=== PATIENT | female | born 1970 | race Caucasian/White ===

== ENCOUNTER 2023-06-29 09:07 | Outpatient (AMB) | payer OTHER, SELFPAY ==
--- NOTE | 2023-06-29 09:30 | MHC.OFFVIS ---
Intake Vital Signs 06/29/23 09:31 Height 5 ft 4.5 in Weight 278 lb 3.574 oz BMI 47.0 BP 126/82 Blood Pressure Location Rt brachial Position Sitting Pulse 76 Pulse Source Pulse Oximeter Temp 97.4 F Temp Source Skin Pulse Oximetry (%) 95 Intake Visit Reasons: Rheumatoid Arthritis - Confirmed Intake Note: New pt presents today for RA consult. C/o pain everywhere Issuer Required: No Accompanied by: Self / Same As Patient Allergies amoxicillin [From Augmentin] Adverse Reaction (Severe, Verified 06/29/23 09:33) Diarrhea clavulanic acid [From Augmentin] Adverse Reaction (Severe, Verified 06/29/23 09:33) Diarrhea gabapentin Adverse Reaction (Severe, Verified 06/29/23 09:33) Hallucinations hydromorphone [From Dilaudid] Adverse Reaction (Intermediate, Verified 06/29/23 09:33) Headache amitriptyline Adverse Reaction (Unknown, Verified 06/29/23 09:33) Diarrhea butalbital Adverse Reaction (Unknown, Verified 06/29/23 09:33) Vomiting duloxetine Adverse Reaction (Unknown, Verified 06/29/23 09:33) Dizziness pregabalin [From Lyrica] Adverse Reaction (Unknown, Verified 06/29/23 09:33) Dizziness Medication List - Last Reconciled 06/29/23 by Júnior Rivera MD acetaminophen (Tylenol Extra Strength) 1,500 mg PO QAM albuterol sulfate 90 mcg/actuation 1 - 2 puffs inhalation Q4-6H PRN atorvastatin 20 mg PO DAILY betamethasone dipropionate 0.05% topical DAILY dapagliflozin propanediol (Farxiga) 10 mg PO DAILY fluticasone propionate 110 mcg/actuation (Flovent HFA) 1 puff inhalation BID leflunomide 20 mg PO DAILY levocetirizine 10 mg PO DAILY lorazepam 0.5 mg PO BID metoprolol succinate ER 25 mg PO DAILY nystatin (Nystop) topical BID PRN prednisone 10 - 20 mg PO DAILY sacubitril-valsartan 24-26 mg (Entresto) 1 tab PO BID semaglutide (Ozempic) 0.25 mg subcut QWEEK spironolactone 25 mg PO DAILY tofacitinib (Xeljanz) 5 mg PO DAILY tramadol 100 mg PO BEDTIME vitamin B complex 1 tab PO DAILY HPI HPI Comments History of Present Illness Details This is a 53-year-old female with GI a who presents as a new patient. Her previous jet inspector left the practice. Patient stated that she was diagnosed with arthritis since her childhood. She has been on numerous medications but she cannot remember the exact sequence and effectiveness. She was on hydroxychloroquine in the past, also previously on methotrexate, Enbrel. Most recently she was on Orencia and leflunomide added in 2016. Last year patient was found to have a left bundle branch block, her ejection fraction was found to be low, she had a pacemaker placed. Patient states that the Orencia was discontinued 4-5 months ago and she was switched to Xeljanz and she believes that Xeljanz is not helping her symptoms. She has diffuse pain everywhere especially her hands, wrists, elbows, feet. She has to take 10-20 mg of prednisone a day in order to control her arthritis. Patient states that over the last 22 years she has developed multiple skin rashes. She was evaluated by a handbell choir director who told her that she likely has psoriasis. She states that a skin biopsy was done but patient is unsure about the result. [facility] Medical History Anxiety and depression Benign essential hypertension Cardiomyopathy Fibromyalgia Heart failure Hyperlipidemia Left bundle branch block Obstructive sleep apnea Panic disorder without agoraphobia Psoriasis Rheumatoid arthritis Surgical History History of total hysterectomy with bilateral salpingo-oophorectomy (BSO) Hx of gastric bypass Hx of tonsillectomy Hx of tubal ligation S/p total knee replacement, bilateral Family History Mother Hypertension Diabetes Dementia, Onset Age: 69 Father Hx of cardiac pacemaker Maternal Grandmother Pancreatic tumor Maternal Aunt Crohn's disease Malignant tumor of uterus, Onset Age: 58 Maternal Grandfather Dementia, Onset Age: 75 Social History Alcohol intake: current Alcohol intake frequency: does not drink Patient Tobacco Use Status: Former Tobacco user Female Reproductive History Menstrual Total pregnancies: 5 Full term: 1 Ab spontaneous: 4 Review of Systems Const Reports fatigue and Reports weakness ENT Reports dizziness Card Reports dyspnea Resp Reports dyspnea and Reports wheezing Musc Reports arthralgias, Reports joint swelling, Reports limited range of motion, Reports numbness and Reports stiffness Skin/Breast Reports rash and Reports unusual bruising Neuro Reports dizziness, Reports numbness and Reports weakness Psych Reports anxiety Endo Reports fatigue and Reports polydipsia Aller/Immun Reports wheezing Physical Exam Vital Signs: Last Vital Signs Temp 97.4 F 06/29/23 09:31 Pulse 76 06/29/23 09:31 BP 126/82 06/29/23 09:31 Pulse Ox 95 06/29/23 09:31 BMI result Body Mass Index 47.0 Const General: cooperative and healthy appearing Nutritional Appearance: obese morbidly obese Orientation/consciousness: patient oriented x3 Limitations: no limitations HEENT Head: Yes normocephalic and Yes atraumatic Mouth: moist mucous membranes Resp Effort & Inspection: normal respiratory effort and able to speak in complete sentences Auscultation: clear to auscultation bilaterally Skin Other: Erythematous scaly circular skin rashes on both legs Dystrophic nails Neuro General: patient oriented x3 Extrem Other: Right wrist tenderness, limited flexion and pain with any range of motion Right elbow warmth, flexion contracture and pain with full flexion and full extension Left wrist tenderness and pain with any range of motion Left elbow pain with full flexion Normal range of motion of both shoulders Bilateral ankle tenderness Assessment & Plan Assessment & Plan (1) Rheumatoid arthritis: Code(s): M06.9 - Rheumatoid arthritis, unspecified Plan: This is a 53-year-old female previously diagnosed with KATE in her tried told then really able to as rheumatoid arthritis who presents as a new patient. Her previous jet inspector left the practice. Patient has been on numerous DMARDs (records unavailable to me) most recently she was on Orencia subcutaneous injections + leflunomide which seemed to be quite helpful for years, Orencia was discontinued a few months ago and switched to Xeljanz. Patient believes that Xeljanz is not effective. She has multiple tender joints as well as multiple fibromyalgia tender points on exam today. She is currently taking 10-20 mg of prednisone a day in addition to tramadol and oxycodone in order to control her pain. Will request records from patient's previous jet inspector as well as her supervisor shuttle veneering and handbell choir director. Check blood work today and x-rays of involved joints. Plan I spent 46 minutes reviewing patient's chart, evaluating patient, ordering diagnostic workup, counseling patient and documenting in the chart Orders: Orders XR hand wrist LT Today M06.9 - Rheumatoid arthritis, unspecified XR hand wrist RT Today M06.9 - Rheumatoid arthritis, unspecified XR ankle LT min 3V Today M06.9 - Rheumatoid arthritis, unspecified XR ankle RT min 3V Today M06.9 - Rheumatoid arthritis, unspecified XR elbow LT min 3V Today M06.9 - Rheumatoid arthritis, unspecified XR elbow RT min 3V Today M06.9 - Rheumatoid arthritis, unspecified XR foot LT min 3V Today M06.9 - Rheumatoid arthritis, unspecified XR foot RT min 3V Today M06.9 - Rheumatoid arthritis, unspecified Cyclic Citrullinated Peptide Today M06.9 - Rheumatoid arthritis, unspecified Comprehensive Met. Panel Today M06.9 - Rheumatoid arthritis, unspecified C Reactive Protein Today M06.9 - Rheumatoid arthritis, unspecified Rheumatoid Factor Today M06.9 - Rheumatoid arthritis, unspecified Complete Blood Count Auto Diff Today M06.9 - Rheumatoid arthritis, unspecified Immunofixation Pnl, Serum Today M06.9 - Rheumatoid arthritis, unspecified Protein Electrophoresis, Serum Today M06.9 - Rheumatoid arthritis, unspecified Hepatitis A,B,C Profile Today Z11.59 - Encounter for screening for other viral diseases T Spot TB Today Z11.7 - Encounter for testing for latent tuberculosis infection Angiotensin Converting Enzyme Today D86.9 - Sarcoidosis, unspecified Lysozyme, Serum Today D86.9 - Sarcoidosis, unspecified Coding Level of Care Code New Pt Level 4 (30409) Diagnoses Rheumatoid arthritis M06.9
[2023-06-29 09:31] VITALS: BP 126/82; PULSE 76; TEMP 36.3; O2SAT 95; BMI 47.0
== END 2023-06-29 10:29 | disposition home or self-care (01) ==
PROVIDERS: PCP Physician Assistant Medical; Visit Provider Student in an Organized Health Care Education/Training Program
DX: M06.9 Rheumatoid arthritis, unspecified (principal)
CPT/HCPCS: 99204

== ENCOUNTER 2023-06-29 09:07 | Outpatient (REF) | payer OTHER, SELFPAY ==
--- NOTE | ~2023-06-29 | XR_ITS ---
EXAMINATION: XR ELBOW, LEFT CLINICAL INFORMATION: Left elbow COMPARISON: None available. TECHNIQUE: AP, lateral, and oblique views of the left elbow. FINDINGS: The bones and soft tissues are normal. No fracture or joint effusion. Alignment is anatomic. Joint spaces are maintained. XR/XR elbow LT min 3V IMPRESSION: Normal left elbow.
--- NOTE | ~2023-06-29 | XR_ITS ---
EXAMINATION: XR WRIST, RIGHT XR HAND, RIGHT CLINICAL INFORMATION: Rheumatoid arthritis COMPARISON: None available. TECHNIQUE: PA, lateral, and oblique views of the right wrist and PA, lateral, and oblique views of the right hand FINDINGS: RIGHT WRIST: There is ulna plus variance and significant narrowing of radiocarpal joint with mild central erosion on the radiographs., RIGHT HAND: There is periarticular osteopenia and mild narrowing cough metacarpophalangeal joints. There is mild soft tissue swelling surrounding fingers. XR/XR hand wrist RT IMPRESSION: Changes of inflammatory arthritis in the right hand and ulna plus variance and narrowing of radiocarpal joint on the right.
--- NOTE | ~2023-06-29 | XR_ITS ---
EXAMINATION: XR ANKLE, RIGHT CLINICAL INFORMATION: Rheumatoid arthritis COMPARISON: None available. TECHNIQUE: AP, lateral, and mortise views of the right ankle. FINDINGS: 3 views of right ankle demonstrate soft tissue swelling surrounding ankle but no evidence of erosive changes or fractures. XR/XR ankle RT min 3V IMPRESSION: Soft tissue edema
--- NOTE | ~2023-06-29 | XR_ITS ---
EXAMINATION: XR FOOT, LEFT CLINICAL INFORMATION: Rheumatoid arthritis COMPARISON: None available. TECHNIQUE: AP, lateral, and oblique views of the left foot. FINDINGS: The bones and soft tissues are normal. No fracture. Alignment is anatomic. Joint spaces are maintained. XR/XR foot LT min 3V IMPRESSION: Normal left foot.
--- NOTE | ~2023-06-29 | XR_ITS ---
EXAMINATION: XR FOOT, RIGHT CLINICAL INFORMATION: Rheumatoid arthritis COMPARISON: None available. TECHNIQUE: AP, lateral, and oblique views of the right foot. FINDINGS: The bones and soft tissues are normal. No fracture. Alignment is anatomic. Joint spaces are maintained. XR/XR foot RT min 3V IMPRESSION: Normal right foot.
--- NOTE | ~2023-06-29 | XR_ITS ---
EXAMINATION: XR ELBOW, RIGHT CLINICAL INFORMATION: Rheumatoid arthritis COMPARISON: None available. TECHNIQUE: AP, lateral, and oblique views of the right elbow. FINDINGS: The bones and soft tissues are normal. No fracture or joint effusion. Alignment is anatomic. Joint spaces are maintained. XR/XR elbow RT min 3V IMPRESSION: Normal right elbow.
--- NOTE | ~2023-06-29 | XR_ITS ---
EXAMINATION: XR ANKLE, LEFT CLINICAL INFORMATION: Rheumatoid arthritis COMPARISON: None available. TECHNIQUE: AP, lateral, and mortise views of the left ankle. FINDINGS: There is soft tissue swelling surrounding left ankle without erosive changes, fractures, osteoarthritis. XR/XR ankle LT min 3V IMPRESSION: Soft tissue swelling
--- NOTE | ~2023-06-29 | XR_ITS ---
EXAMINATION: XR WRIST, LEFT XR HAND, LEFT CLINICAL INFORMATION: Rheumatoid arthritis COMPARISON: None available. TECHNIQUE: PA, lateral, and oblique views of the left wrist and PA, lateral, and oblique views of the left hand FINDINGS: LEFT WRIST: There is diffuse osteopenia. There is ulna plus variance. There is narrowing of radiocarpal joint with central erosion in the radius LEFT HAND: There is periarticular osteopenia and soft tissue swelling surrounding fingers. No other erosive changes identified. XR/XR hand wrist LT IMPRESSION: Changes of inflammatory arthritis in the left hand and ulna plus variance and narrowing of radiocarpal joint on the left.
== END 2023-06-29 09:08 | disposition home or self-care (01) ==
LOC: HO.XRAY 09:07
PROVIDERS: PCP Physician Assistant Medical; Visit Provider Student in an Organized Health Care Education/Training Program
DX: M06.9 Rheumatoid arthritis, unspecified (principal); Z11.59 Encounter for screening for other viral diseases; Z11.7 Encounter for testing for latent tuberculosis infection; D86.9 Sarcoidosis, unspecified
CPT/HCPCS: 73080; 73110; 73130; 73610; 73630

== ENCOUNTER 2023-06-29 10:26 | Outpatient (REF) | payer OTHER, SELFPAY ==
[2023-06-29 11:48] LABS: Rheumatoid Factor < 13.0 IU/mL (<15.0)
[2023-06-29 11:56] LABS: Alanine Aminotransferase 24 U/L (0-31); Albumin Level 4.2 g/dL (3.5-5.0); Alkaline Phosphatase 61 U/L (39-117); Anion Gap 19 (12-20); Aspartate Amino Transferase 19 U/L (5-31); Bilirubin Total 0.5 mg/dL (0.0-1.0); Blood Urea Nitrogen 16 mg/dL (9-16); C Reactive Protein 1.98 mg/dL (< or = 0.50); Calcium 9.7 mg/dL (8.4-10.2); Carbon Dioxide 19 mmol/L (22-29); Chloride 106 mmol/L (96-108); Estimated Glomerular Filt Rate > 60; Glucose Random 118 mg/dL (60-115); Potassium 4.4 mmol/L (3.3-5.1); Sodium 140 mmol/L (135-145); Total Protein 7.3 g/dL (6.5-8.0)
[2023-06-29 12:28] LABS: HBS Num1 0.24 mIU/mL (0-7.99); HBc Num1 0.07 S/CO (0.00-0.79); HBsAGNum1 0.33 S/CO (0.00-0.99); Hepatitis A Antibody IgM 0.19 Index (0-0.79); Hepatitis B Core Antibody Nonreactive (Nonreactive); Hepatitis B Surface Antigen Negative (Negative); ~HepC Num1 0.06 S/CO (0.00-0.79); ~Hepatitis A Antibody IgM Nonreactive (Nonreactive); ~Hepatitis B Surface Antibody NONREACTIVE (Nonreactive); ~Hepatitis C Antibody Nonreactive (Nonreactive)
[2023-06-30 13:28] LABS: Prot Elec - Albumin 4.3 g/dL (3.8-4.8); Prot Elec - Alpha1 0.4 g/dL (0.2-0.3); Prot Elec - Beta 1 0.4 g/dL (0.4-0.6); Prot Elec - Beta 2 0.4 g/dL (0.2-0.5); Prot Elec - Gamma 0.8 g/dL (0.8-1.7); Prot Elec - Total Protein 7.3 g/dL (6.1-8.1)
[2023-06-30 15:13] LABS: Cyclic Citrullinated Peptide 32 UNITS
[2023-07-01 15:38] LABS: TS Negative Control Passed; TS Panel A 0; TS Panel B 0; TS Positive Control Passed; TSpotTB Negative (Negative)
[2023-07-02 08:52] LABS: Angiotensin Converting Enzyme 19 U/L (9-67)
[2023-07-02 09:24] LABS: IgA 185 mg/dL (47-310); IgG 853 mg/dL (600-1640); IgM 73 mg/dL (50-300)
[2023-07-02 19:48] LABS: Lysozyme, Serum 15.6 mcg/mL (5.0-11.0)
== END 2023-06-29 10:27 | disposition home or self-care (01) ==
LOC: HO.10HDL 10:26
PROVIDERS: Visit Provider Student in an Organized Health Care Education/Training Program
DX: Z11.59 Encounter for screening for other viral diseases (principal); Z11.7 Encounter for testing for latent tuberculosis infection; M06.9 Rheumatoid arthritis, unspecified; D86.9 Sarcoidosis, unspecified
CPT/HCPCS: 36415; 80053; 82164; 82784; 84165; 85549; 86140; 86200; 86334; 86431; 86481; 86704; 86706; 86709; 86803; 87340; 99202

== ENCOUNTER 2023-08-16 10:11 | Outpatient (AMB) | payer OTHER, SELFPAY ==
--- NOTE | 2023-08-16 10:27 | MHC.OFFVIS ---
Intake Vital Signs 08/16/23 10:28 Height 5 ft 4.5 in Weight 270 lb 1.06 oz BMI 45.6 BP 126/74 Blood Pressure Location Rt brachial Position Sitting Pulse 83 Pulse Source Pulse Oximeter Temp 97.6 F Temp Source Skin Pulse Oximetry (%) 96 Intake Visit Reasons: 2 wks f/u for RA Intake Note: Pt seen today for RA follow up. She reports she put herlself back on orencia due to pain. Crm Marketing Specialist Required: No Accompanied by: Self / Same As Patient Allergies amoxicillin [From Augmentin] Adverse Reaction (Severe, Verified 08/16/23 10:29) Diarrhea clavulanic acid [From Augmentin] Adverse Reaction (Severe, Verified 08/16/23 10:29) Diarrhea gabapentin Adverse Reaction (Severe, Verified 08/16/23 10:29) Hallucinations hydromorphone [From Dilaudid] Adverse Reaction (Intermediate, Verified 08/16/23 10:29) Headache amitriptyline Adverse Reaction (Unknown, Verified 08/16/23 10:29) Diarrhea butalbital Adverse Reaction (Unknown, Verified 08/16/23 10:29) Vomiting duloxetine Adverse Reaction (Unknown, Verified 08/16/23 10:29) Dizziness pregabalin [From Lyrica] Adverse Reaction (Unknown, Verified 08/16/23 10:29) Dizziness Medication List - Last Reconciled 08/16/23 by Júnior Rivera MD abatacept (Orencia) 125 mg subcut QWEEK acetaminophen (Tylenol Extra Strength) 1,500 mg PO QAM acetaminophen (Tylenol Extra Strength) 500 mg PO Q6H PRN albuterol sulfate 90 mcg/actuation 1 - 2 puffs inhalation Q4-6H PRN atorvastatin 20 mg PO DAILY betamethasone dipropionate 0.05% topical DAILY dapagliflozin propanediol (Farxiga) 10 mg PO DAILY fluticasone propionate 110 mcg/actuation (Flovent HFA) 1 puff inhalation BID leflunomide 20 mg PO DAILY levocetirizine 10 mg PO DAILY lorazepam 0.5 mg PO BID metoprolol succinate ER 25 mg PO DAILY nystatin 1 appl topical BID nystatin (Nystop) topical BID PRN oxycodone 10 mg PO TID PRN rhubarb root extract (Estroven Complete Menopause Relief) mg PO DAILY sacubitril-valsartan 24-26 mg (Entresto) 1 tab PO BID sacubitril-valsartan 49-51 mg (Entresto) 1 tab PO BID semaglutide (Ozempic) 0.25 mg subcut QWEEK semaglutide (Ozempic) mg subcut spironolactone 25 mg PO DAILY tizanidine 2 mg PO BEDTIME tramadol 100 mg PO BEDTIME vitamin B complex 1 tab PO DAILY HPI HPI Comments History of Present Illness Details 53-year-old female with seropositive RA returns for follow-up. States that she had some Orencia from an old prescription at home. She started using Orencia weekly 3 weeks ago. States that joint her pain is dramatically better. She continues to take Xeljanz and leflunomide. She continues to have the same fibromyalgia pain. She stopped the prednisone 3 weeks ago soon as she started the Orencia due to improvement in joint pain. She states that the rashes did not worsen when she started Orencia Initial history: This is a 53-year-old female with KATE who presents as a new patient. Her previous foundry engineer left the practice. Patient stated that she was diagnosed with arthritis since her childhood. She has been on numerous medications but she cannot remember the exact sequence and effectiveness. She was on hydroxychloroquine in the past, also previously on methotrexate, Enbrel. Most recently she was on Orencia and leflunomide added in 2016. Last year patient was found to have a left bundle branch block, her ejection fraction was found to be low, she had a pacemaker placed. Patient states that the Orencia was discontinued 4-5 months ago and she was switched to Xeljanz and she believes that Xeljanz is not helping her symptoms. She has diffuse pain everywhere especially her hands, wrists, elbows, feet. She has to take 10-20 mg of prednisone a day in order to control her arthritis. Patient states that over the last 2 years she has developed multiple skin rashes. She was evaluated by a investigation clerk who told her that she likely has psoriasis. She states that a skin biopsy was done but patient is unsure about the result. [facility] Medical History (Updated 08/16/23 @ 11:29 by Júnior Rivera MD) Left bundle branch block Fibromyalgia Rheumatoid arthritis Psoriasis Heart failure Cardiomyopathy Benign essential hypertension Obstructive sleep apnea Anxiety and depression Panic disorder without agoraphobia Hyperlipidemia Surgical History Hx of gastric bypass Hx of tonsillectomy Hx of tubal ligation S/p total knee replacement, bilateral History of total hysterectomy with bilateral salpingo-oophorectomy (BSO) Family History Mother Hypertension Diabetes Dementia, Onset Age: 69 Father Hx of cardiac pacemaker Maternal Grandmother Pancreatic tumor Maternal Aunt Crohn's disease Malignant tumor of uterus, Onset Age: 58 Maternal Grandfather Dementia, Onset Age: 75 Social History Alcohol intake: current Alcohol intake frequency: does not drink Patient Tobacco Use Status: Former Tobacco user Review of Systems Musc Reports arthralgias, Reports numbness and Reports stiffness Skin/Breast Reports rash and Reports unusual bruising Neuro Reports numbness Psych Reports anxiety Physical Exam Vital Signs: Last Vital Signs Temp 97.6 F 08/16/23 10:28 Pulse 83 08/16/23 10:28 BP 126/74 08/16/23 10:28 Pulse Ox 96 08/16/23 10:28 BMI result Body Mass Index 45.6 Const General: cooperative and healthy appearing Nutritional Appearance: obese morbidly obese Orientation/consciousness: patient oriented x3 Limitations: no limitations HEENT Head: Yes normocephalic and Yes atraumatic Resp Effort & Inspection: normal respiratory effort and able to speak in complete sentences Skin Other: Erythematous scaly circular skin rashes on both legs Dystrophic nails Neuro General: patient oriented x3 Extrem Other: Bilateral ulnar prominence, no wrist tenderness, warmth or swelling today Bilateral flexion contracture of both elbows without warmth or tenderness or pain with flexion and extension No ankle tenderness , swelling or warmth. Numerous fibromyalgia tender points Assessment & Plan Assessment & Plan (1) Rheumatoid arthritis: Comment: +CCP -ve RF numerous DMARDs, detalisl unknown Orencia + lef effective for many years orencia DC 2021 due to skin rash Xeljanz started early 2022 ineffective switched to Orencia 06/2023 effective Code(s): M06.9 - Rheumatoid arthritis, unspecified Qualifiers: Rheumatoid arthritis location: multiple sites Rheumatoid factor presence: without rheumatoid factor Qualified Code(s): M06.09 - Rheumatoid arthritis without rheumatoid factor, multiple sites Plan: This is a 53-year-old female previously diagnosed with KATE in her childhood then relabeled seropositive rheumatoid arthritis who presents for follow-up. Patient has erosive disease. Patient was doing well for years on Orencia and leflunomide combination until 03/2022 when she was diagnosed with CHF and LBBB, she also developed a skin rash and evaluated by a investigation clerk, no diagnosis could be specified an Orencia was discontinued. She was switched to Xeljanz since early 2022 any was ineffective. Patient restarted Orencia is 3 weeks ago from an old on prescription and it was quite effective. She stopped prednisone. There is no synovitis on exam today. No worsening skin rash Discontinue Xeljanz. Restart Orencia 125 mg once weekly. Will restart prior authorization for Orencia. Continue leflunomide 20 mg daily. Labs before next visit in 3 months (2) High risk medication use: Code(s): Z79.899 - Other intermediate (current) drug therapy Plan: Patient was diagnosed with CHF and LBBB in 2021. According to patient. The etiology is unknown. Will attempt to retrieve records from [facility]. Orencia has not been consistently associated with development of CHF. In her case however the prior T should be to use the medication that helps her rheumatoid arthritis disease activity in order to reduce cardiovascular risk. Monitor labs for leflunomide Plan I spent 26 minutes reviewing patient's chart, evaluating patient, ordering diagnostic workup, counseling patient and documenting in the chart Orders: Orders Lysozyme, Serum 3 Months D86.9 - Sarcoidosis, unspecified Complete Blood Count Auto Diff 3 Months M06.9 - Rheumatoid arthritis, unspecified Comprehensive Met. Panel 3 Months M06.9 - Rheumatoid arthritis, unspecified C Reactive Protein 3 Months M06.9 - Rheumatoid arthritis, unspecified Erythrocyte Sedimentation Rate 3 Months M06.9 - Rheumatoid arthritis, unspecified Coding Level of Care Code Est Pt Level 4 (01285) Diagnoses Rheumatoid arthritis of multiple sites with negative rheumatoid factor M06.09 Rheumatoid arthritis location: multiple sites Rheumatoid factor presence: without rheumatoid factor High risk medication use Z79.899
[2023-08-16 10:28] VITALS: BP 126/74; PULSE 83; TEMP 36.4; O2SAT 96; BMI 45.6
== END 2023-08-16 11:09 | disposition home or self-care (01) ==
PROVIDERS: PCP Physician Assistant Medical; Visit Provider Student in an Organized Health Care Education/Training Program
DX: M06.09 Rheumatoid arthritis without rheumatoid factor, multiple sites (principal); Z79.899 Other long term (current) drug therapy
CPT/HCPCS: 99214

== ENCOUNTER → 2023-08-16 10:11 | Outpatient (BNVA) | payer OTHER, SELFPAY | PROVIDERS: PCP Physician Assistant Medical; Visit Provider Student in an Organized Health Care Education/Training Program | DX: M06.09 Rheumatoid arthritis without rheumatoid factor, multiple sites (principal); Z79.899 Other long term (current) drug therapy | CPT/HCPCS: 73110; 73130; 99212 ==